=== PATIENT | male | born 1950 | race Caucasian/White ===

== ENCOUNTER → 2021-07-07 14:03 | Outpatient (CLI) | payer OTHER, SELFPAY ==
--- NOTE | 2021-07-07 14:09 | RAD_ITS ---
STUDY: BILATERAL ENEMA. REASON FOR EXAM: Male, 70 years old. INCOMPLETE COLONOSCOPY FLUOROSCOPY TIME (if supplied): ( 48 seconds ) minutes/seconds. AP images were obtained. 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 Following this, barium was introduced retrograde through the rectum. Entire colon was opacified. COMPARISON: None. FINDINGS: There is evidence of diffuse sigmoid diverticulosis without radiographic evidence of diverticulitis. The sigmoid colon is redundant. There is no evidence of retrograde or antegrade obstruction to the flow of contrast. There is a 1.2 cm x 0.7 cm rounded filling defect in the cecum. This may represent a tiny polyp. RAD/Barium Enema No Air Cont IMPRESSION: Findings suggestive of a 1.2 cm x 0.7 cm polyp in the cecum. Extensive sigmoid diverticulosis and redundancy of the sigmoid colon. Electronically Signed: Sarmad Garcia MD at 15:40 EDT , Service support ,
== END ==
PROVIDERS: PCP Family Medicine; Referring Provider Surgery; Visit Provider Surgery
DX: K57.30 Diverticulosis of large intestine without perforation or abscess without bleeding (principal)
CPT/HCPCS: 74270